=== PATIENT | male | born 1985 | race Caucasian/White ===

== ENCOUNTER 2019-10-19 13:40 | Emergency (ER) | payer OTHER ==
--- NOTE | 2019-10-19 14:16 | RAD ---
RIGHT ANKLE 3 VIEWS: HISTORY: Injury, right ankle pain FINDINGS: Soft tissue swelling is present. The ankle mortise is maintained. No acute fracture or dislocation is identified.
== END 2019-10-19 14:50 | disposition home or self-care (01) ==
LOC: ERS 13:40
DX: S93.401A Sprain of unspecified ligament of right ankle, initial encounter (principal); K58.9 Irritable bowel syndrome, unspecified; Z79.899 Other long term (current) drug therapy; X50.1XXA Overexertion from prolonged static or awkward postures, initial encounter

== ENCOUNTER 2020-12-12 14:02 | Inpatient (IN) | payer OTHER ==
[2020-12-12] MEDS ORDERED: Fentanyl 100 MCG/2 ML VIAL ONE (14:11)
[2020-12-12 14:26] LABS: #Eosinphils 0.4 thou/uL (0.0-0.7); #Lymphocytes 3.2 thou/uL (1.20-3.40); #Monocytes 0.7 thou/uL (0.11-0.59); #Neutrophils 11.6 thou/uL (1.40-6.50); %Basophils 0.2 % (0.0-1.0); %Eosinophils 2.6 % (0.0-10.0); %Lymphocytes 19.8 % (21.0-51.0); %Monocytes 4.6 % (0.0-10.0); %Neutrophils 72.9 % (42.0-75.0); Hemoglobin 15.1 g/dL (14.0-18.0); Mean Corpuscular HGB CONC 32.8 g/dL (32.0-36.0); Mean Corpuscular Volume 82.5 fL (78.0-98.0); Mean Platelet Volume 7.3 fL (7.4-10.4); Platelet Count 370 thou/uL (130-400); RBC Distribution Width 11.2 % (11.5-14.5); White Blood Cell (WBC) Count 15.9 thou/uL (4.8-10.8)
[2020-12-12 14:36] LABS: INR-International Normal Ratio 0.9; PTT 23.1 sec (22.9-36.1); Prothrombin Time 12.7 sec (12.0-14.7)
[2020-12-12 14:52] LABS: ALT (SGPT) 43 U/L (8-55); AST (SGOT) 36 U/L (5-34); Albumin 4.4 g/dL (3.5-5.0); Alkaline Phosphatase 64 U/L (40-110); Anion Gap 14 mmol/L (10-20); BUN (Urea Nitrogen) 15 mg/dL (8.9-20.6); Bilirubin, Total 0.8 mg/dL (0.2-1.2); Calc. Creatinine Clearance 0 mL/min (70-130); Calcium 9.1 mg/dL (7.8-10.44); Carbon Dioxide 24 mmol/L (22-29); Chloride 102 mmol/L (98-107); Globulin 3.2 g/dL (2.4-3.5); Glucose 126 mg/dL (70-105); Lipase 8 U/L (8-78); Potassium 3.4 mmol/L (3.5-5.1); Protein, Total 7.6 g/dL (6.0-8.3); Sodium 137 mmol/L (136-145)
[2020-12-12] MEDS ORDERED: Morphine 4 MG/ML VIAL ONE (14:53)
[2020-12-12] MEDS ORDERED: Ondansetron PF 4 MG/2 ML Vial ONE (14:53)
[2020-12-12] MEDS ORDERED: Iopamidol-370 76% 500 ML 1 ML ONE (14:55)
[2020-12-12] MEDS ORDERED: Boostrix 0.5 ML (Tdap) VIAL ONE (14:59)
[2020-12-12 15:42] LABS: Alcohol Less than 10 mg/dL (Less than 10)
[2020-12-12] MEDS ORDERED: Lidocaine 1% PF 5 ML VIAL ONE (16:34)
[2020-12-12] MEDS ORDERED: Morphine 2 MG/ML VIAL ONE (16:37)
[2020-12-12] MEDS ORDERED: Dextrose 5% in Water 1,000 ML IV PRN (18:27)
[2020-12-12] MEDS ORDERED: Dextrose 50% Abboject 50 ML SYRINGE SLOW IVP PRN (18:27)
[2020-12-12] MEDS ORDERED: Ondansetron ODT 4 MG TAB PO PRN (18:27)
[2020-12-12] MEDS ORDERED: hydrALAZINE 20 MG/ML VIAL SLOW IVP PRN (18:27)
[2020-12-12] MEDS ORDERED: Ibuprofen 200 MG TAB PO PRN (18:27)
[2020-12-12] MEDS ORDERED: Acetaminophen 500 MG TAB PO SCH (18:45)
[2020-12-12 19:27] LABS: Lactic Acid 3.4 mmol/L (0.5-2.2)
[2020-12-12] MEDS: Famotidine 20 MG TAB PO SCH (19:54)
[2020-12-12] MEDS: Morphine 2 MG/ML VIAL SLOW IVP PRN (19:55)
[2020-12-12] MEDS: Sodium Chloride 0.9% 1,000 ML IV SCH (19:55)
[2020-12-12] MEDS: traMADol HCl 50 MG TAB PO PRN (20:20)
[2020-12-12] MEDS: Cyclobenzaprine 10 MG TAB PO PRN (20:21)
[2020-12-12 20:36] VITALS: BMI 38.5
[2020-12-12] MEDS: Senokot S 8.6-50 MG TAB PO SCH (22:02)
[2020-12-12] MEDS: Acetaminophen 500 MG TAB PO SCH (23:11)
[2020-12-12] MEDS: traMADol HCl 50 MG TAB PO SCH (23:12)
[2020-12-13] MEDS: traMADol HCl 50 MG TAB PO PRN (02:14)
[2020-12-13 02:33] LABS: SARS-CoV-2 PCR by NAA Not Detected (NotDetected)
[2020-12-13 05:14] LABS: #Monocytes 1.2 thou/uL (0.11-0.59); %Basophils 0.1 % (0.0-1.0); %Eosinophils 0.4 % (0.0-10.0); %Lymphocytes 19.3 % (21.0-51.0); %Monocytes 11.4 % (0.0-10.0); %Neutrophils 68.8 % (42.0-75.0); Hemoglobin 12.1 g/dL (14.0-18.0); Mean Corpuscular HGB CONC 34.4 g/dL (32.0-36.0); Mean Corpuscular Hemoglobin 28.6 pg (27.0-31.0); Mean Corpuscular Volume 83.1 fL (78.0-98.0); Mean Platelet Volume 7.3 fL (7.4-10.4); Platelet Count 244 thou/uL (130-400); RBC Distribution Width 11.1 % (11.5-14.5); Red Blood Cell (RBC) Count 4.22 mill/uL (4.70-6.10); White Blood Cell (WBC) Count 10.2 thou/uL (4.8-10.8)
[2020-12-13] MEDS: Sodium Chloride 0.9% 1,000 ML IV SCH ×2 (05:21→10:37)
[2020-12-13] MEDS: Acetaminophen 500 MG TAB PO SCH ×3 (05:21→17:29)
[2020-12-13] MEDS: traMADol HCl 50 MG TAB PO SCH (05:22)
[2020-12-13 05:29] LABS: Lactic Acid 1.2 mmol/L (0.5-2.2)
[2020-12-13 05:32] LABS: Phosphorus 4.1 mg/dL (2.3-4.7)
[2020-12-13 05:33] LABS: Anion Gap 11 mmol/L (10-20); BUN (Urea Nitrogen) 16 mg/dL (8.9-20.6); CK (CPK) 581 U/L (30-200); Calc. Creatinine Clearance 216 mL/min (70-130); Carbon Dioxide 22 mmol/L (22-29); Chloride 107 mmol/L (98-107); Glucose 106 mg/dL (70-105); Magnesium 1.9 mg/dL (1.6-2.6); Potassium 3.8 mmol/L (3.5-5.1); Sodium 136 mmol/L (136-145)
[2020-12-13] MEDS ORDERED: CEFAZOLIN 2 GM in Premix Bag 1 BAG IVPB SCH (07:15)
[2020-12-13] MEDS ORDERED: Promethazine HCl 25 MG/ML VIAL IM PRN ×2 (10:04→21:01)
[2020-12-13] MEDS ORDERED: diphenhydrAMINE 25 MG CAP PO PRN (10:04)
[2020-12-13] MEDS ORDERED: diphenhydrAMINE 50 MG/ML VIAL IM PRN (10:04)
[2020-12-13] MEDS ORDERED: diphenhydrAMINE 50 MG/ML VIAL IVP PRN (10:04)
[2020-12-13] MEDS ORDERED: Zolpidem Tartrate 5 MG TAB PO PRN (10:04)
[2020-12-13] MEDS ORDERED: Naloxone HCl 0.4 mg/ml Vial IV PRN (10:04)
[2020-12-13] MEDS ORDERED: Communication Order-Pharmacy FS PRN (10:15)
[2020-12-13] MEDS: Morphine 2 MG/ML VIAL SLOW IVP PRN (10:31)
[2020-12-13] MEDS: Cyclobenzaprine 10 MG TAB PO PRN (10:33)
[2020-12-13] MEDS: Polyethylene Glycol 3350 17 GM Packet PO SCH (10:37)
[2020-12-13] MEDS: Famotidine 20 MG TAB PO SCH ×2 (10:38→22:36)
[2020-12-13] MEDS: Senokot S 8.6-50 MG TAB PO SCH ×2 (10:41→22:36)
[2020-12-13] MEDS ORDERED: Morphine 4 MG/ML VIAL SLOW IVP SCH (12:45)
[2020-12-13] MEDS ORDERED: Fentanyl 100 MCG/2 ML VIAL ONE ×2 (13:51→16:26)
[2020-12-13] MEDS ORDERED: Midazolam HCl 2 mg/2 ml Vial ONE ×2 (13:51→15:43)
[2020-12-13] MEDS ORDERED: AFRIN NASAL MIST 15 ML BOT ONE (14:58)
[2020-12-13] MEDS ORDERED: Lidocaine 1% w/Epinephrine 1:100K 20 ML VIAL ONE (15:03)
[2020-12-13] MEDS ORDERED: Bacitracin Zinc Ointment 30 gm TUBE ONE (15:03)
[2020-12-13] MEDS ORDERED: Chlorhexidine Gluconate 15 ML UDCUP SSP ONE (15:03)
[2020-12-13] MEDS ORDERED: Glycopyrrolate 0.2 MG/ML 5 ML SYRINGE ONE (15:53)
[2020-12-13] MEDS ORDERED: Lidocaine 1% PF 5 ML VIAL ONE (15:53)
[2020-12-13] MEDS ORDERED: Vecuronium 10 MG VIAL ONE (15:53)
[2020-12-13] MEDS ORDERED: Dexamethasone 20 MG/5 ML VIAL ONE (15:53)
[2020-12-13] MEDS ORDERED: Rocuronium Bromide 10 MG/ML (10ML VIAL) ONE (15:53)
[2020-12-13] MEDS ORDERED: Ondansetron PF 4 MG/2 ML Vial ONE (15:53)
[2020-12-13] MEDS ORDERED: Esmolol 100 MG/10 ML VIAL ONE (15:53)
[2020-12-13] MEDS ORDERED: Bupivacaine PF 0.5% 30 ML VIAL ONE (15:53)
[2020-12-13] MEDS ORDERED: PROPOFOL 200 MG/20 ML VIAL ONE (15:53)
[2020-12-13] MEDS ORDERED: HYDROmorphone 2 MG/ML VIAL ONE ×2 (16:30→18:12)
[2020-12-13] MEDS ORDERED: SUGAMMADEX SODIUM 200 MG/2 ML VIAL ONE (18:21)
[2020-12-13] MEDS ORDERED: HYDROmorphone 2 MG/ML VIAL SLOW IVP PRN (21:01)
[2020-12-13] MEDS ORDERED: Meperidine HCl/PF 25 MG/ML VIAL SLOW IVP PRN (21:01)
[2020-12-13] MEDS ORDERED: Ondansetron HCl/PF 4 MG/2 ML Vial IVP PRN (21:01)
[2020-12-13] MEDS ORDERED: Promethazine HCl 25 MG/ML VIAL SLOW IVP PRN (21:01)
[2020-12-13] MEDS ORDERED: Labetalol HCl 100 MG/20 ML VIAL ONE (21:13)
[2020-12-13] MEDS: HYDROmorphone 10 mg/100 ml CADD IVPB PRN (22:48)
[2020-12-13] MEDS: CEFAZOLIN 2 GM in Premix Bag 1 BAG IVPB SCH (23:11)
[2020-12-14] MEDS: Acetaminophen 500 MG TAB PO SCH ×3 (01:55→06:43)
[2020-12-14 05:22] LABS: #Lymphocytes 1.5 thou/uL (1.20-3.40); #Monocytes 1.5 thou/uL (0.11-0.59); #Neutrophils 11.1 thou/uL (1.40-6.50); %Basophils 0.1 % (0.0-1.0); %Eosinophils 0.1 % (0.0-10.0); %Lymphocytes 10.5 % (21.0-51.0); %Monocytes 10.6 % (0.0-10.0); %Neutrophils 78.7 % (42.0-75.0); Hemoglobin 10.4 g/dL (14.0-18.0); Mean Corpuscular HGB CONC 33.3 g/dL (32.0-36.0); Mean Corpuscular Hemoglobin 27.8 pg (27.0-31.0); Mean Corpuscular Volume 83.7 fL (78.0-98.0); Mean Platelet Volume 7.4 fL (7.4-10.4); Platelet Count 226 thou/uL (130-400); Red Blood Cell (RBC) Count 3.75 mill/uL (4.70-6.10); White Blood Cell (WBC) Count 14.1 thou/uL (4.8-10.8)
[2020-12-14 05:39] LABS: Anion Gap 14 mmol/L (10-20); BUN (Urea Nitrogen) 12 mg/dL (8.9-20.6); Calc. Creatinine Clearance 213 mL/min (70-130); Calcium 7.8 mg/dL (7.8-10.44); Carbon Dioxide 21 mmol/L (22-29); Chloride 104 mmol/L (98-107); Glucose 127 mg/dL (70-105); Magnesium 1.8 mg/dL (1.6-2.6); Phosphorus 3.9 mg/dL (2.3-4.7); Potassium 4.1 mmol/L (3.5-5.1); Sodium 135 mmol/L (136-145)
[2020-12-14] MEDS: CEFAZOLIN 2 GM in Premix Bag 1 BAG IVPB SCH ×2 (06:39→14:56)
[2020-12-14] MEDS: Polyethylene Glycol 3350 17 GM Packet PO SCH (08:29)
[2020-12-14] MEDS: Senokot S 8.6-50 MG TAB PO SCH ×2 (08:29→20:28)
[2020-12-14] MEDS: Famotidine 20 MG TAB PO SCH ×2 (08:29→20:28)
[2020-12-14] MEDS: Enoxaparin Sodium 40 MG/0.4 ML SYRINGE SC SCH ×2 (10:29→20:24)
[2020-12-14] MEDS: Sodium Chloride 0.9% 1,000 ML IV SCH ×3 (10:29→20:25)
[2020-12-14] MEDS: Ketorolac Tromethamine 30 MG/ML VIAL IVP SCH ×3 (11:50→23:31)
[2020-12-14] MEDS: Gabapentin 300 MG CAP PO SCH ×2 (14:57→20:28)
[2020-12-14] MEDS: Ondansetron PF 4 MG/2 ML Vial IVP PRN ×2 (15:13→23:33)
[2020-12-14] MEDS: Lactase 9,000 UNIT CHEWABLE TAB PO SCH (17:56)
[2020-12-14] MEDS: Scopolamine 1.5 mg/72 hour Patch TD SCH (17:57)
[2020-12-14] MEDS: HYDROmorphone 10 mg/100 ml CADD IVPB PRN (17:58)
[2020-12-15 05:40] LABS: #Lymphocytes 1.2 thou/uL (1.20-3.40); #Monocytes 1.2 thou/uL (0.11-0.59); #Neutrophils 7.9 thou/uL (1.40-6.50); %Basophils 0.3 % (0.0-1.0); %Eosinophils 0.4 % (0.0-10.0); %Lymphocytes 11.6 % (21.0-51.0); %Monocytes 11.7 % (0.0-10.0); Hemoglobin 9.7 g/dL (14.0-18.0); Mean Corpuscular HGB CONC 34.4 g/dL (32.0-36.0); Mean Corpuscular Hemoglobin 28.7 pg (27.0-31.0); Mean Corpuscular Volume 83.6 fL (78.0-98.0); Mean Platelet Volume 7.6 fL (7.4-10.4); Platelet Count 182 thou/uL (130-400); RBC Distribution Width 10.9 % (11.5-14.5); Red Blood Cell (RBC) Count 3.39 mill/uL (4.70-6.10); White Blood Cell (WBC) Count 10.3 thou/uL (4.8-10.8)
[2020-12-15] MEDS: Ketorolac Tromethamine 30 MG/ML VIAL IVP SCH ×4 (05:59→23:04)
[2020-12-15 06:03] LABS: Anion Gap 15 mmol/L (10-20); BUN (Urea Nitrogen) 13 mg/dL (8.9-20.6); Calc. Creatinine Clearance 235 mL/min (70-130); Calcium 7.8 mg/dL (7.8-10.44); Carbon Dioxide 22 mmol/L (22-29); Chloride 103 mmol/L (98-107); Glucose 103 mg/dL (70-105); Magnesium 2.1 mg/dL (1.6-2.6); Phosphorus 2.6 mg/dL (2.3-4.7); Potassium 3.8 mmol/L (3.5-5.1); Sodium 136 mmol/L (136-145)
[2020-12-15] MEDS: Ondansetron PF 4 MG/2 ML Vial IVP PRN ×2 (09:00→17:53)
[2020-12-15] MEDS: Enoxaparin Sodium 40 MG/0.4 ML SYRINGE SC SCH ×2 (09:02→22:28)
[2020-12-15] MEDS: Lactase 9,000 UNIT CHEWABLE TAB PO SCH ×2 (09:03→17:25)
[2020-12-15] MEDS: Polyethylene Glycol 3350 17 GM Packet PO SCH (09:03)
[2020-12-15] MEDS: Famotidine 20 MG TAB PO SCH ×2 (09:03→22:28)
[2020-12-15] MEDS: Senokot S 8.6-50 MG TAB PO SCH ×2 (09:03→22:25)
[2020-12-15] MEDS: Gabapentin 300 MG CAP PO SCH ×3 (09:04→22:26)
[2020-12-15] MEDS: Ascorbic Acid 500 mg Chewable Tablet PO SCH ×2 (09:04→22:27)
[2020-12-15] MEDS: Acetaminophen W/ Codeine 5 ML UDCUP PO SCH ×4 (09:05→18:23)
[2020-12-15] MEDS: Sodium Chloride 0.9% 1,000 ML IV SCH (09:08)
[2020-12-15 10:34] LABS: Bacteria/HPF None Seen HPF (None Seen); Bilirubin Negative (Negative); Blood, Urine 1+ (Negative); Clarity Clear (Clear); Glucose, Urine (Dipstick) Normal (Negative); Ketone, Urine 20 mg/dL (Negative); Leukocyte Negative Leu/uL (Negative); Nitrite Negative (Negative); Protein, Urine (Dipstick) 20 mg/dL (Neg-Trace); Specific Gravity, Urine 1.023 (1.002-1.036); Squamous Epithelial 0-3 HPF (0-3); Urobilinogen Normal mg/dL (Less than 2); WBC/HPF 0-3 HPF (0-3)
[2020-12-15 10:36] LABS: Urine Culture Reflex No No
[2020-12-15] MEDS ORDERED: Furosemide 20 MG/2 ML VIAL SLOW IVP SCH (10:45)
[2020-12-15 10:54] LABS: CKMB 6.3 ng/mL (0-6.6)
[2020-12-15 12:04] LABS: CK (CPK) 4769 U/L (30-200)
[2020-12-15 14:06] LABS: CKMB 5.2 ng/mL (0-6.6)
[2020-12-15] MEDS ORDERED: Senokot 8.6 MG TAB PO SCH (17:00)
[2020-12-15] MEDS ORDERED: traMADol HCl 50 MG TAB PO PRN (18:52)
[2020-12-15] MEDS: Promethazine HCl 12.5 MG in Sodium Chloride 0.9% 50 ML IVPB PRN (19:50)
[2020-12-15] MEDS: traMADol HCl 50 MG TAB PO SCH (23:06)
[2020-12-16] MEDS: Sodium Chloride 0.9% 1,000 ML IV SCH ×4 (00:14→21:15)
[2020-12-16 05:04] LABS: Hemoglobin 8.8 g/dL (14.0-18.0); Mean Corpuscular HGB CONC 34.6 g/dL (32.0-36.0); Mean Corpuscular Hemoglobin 28.9 pg (27.0-31.0); Mean Corpuscular Volume 83.5 fL (78.0-98.0); Mean Platelet Volume 7.6 fL (7.4-10.4); Platelet Count 239 thou/uL (130-400); RBC Distribution Width 10.9 % (11.5-14.5); Red Blood Cell (RBC) Count 3.05 mill/uL (4.70-6.10); White Blood Cell (WBC) Count 12.1 thou/uL (4.8-10.8)
[2020-12-16] MEDS: traMADol HCl 50 MG TAB PO SCH ×3 (05:18→18:09)
[2020-12-16] MEDS: Ketorolac Tromethamine 30 MG/ML VIAL IVP SCH ×3 (05:20→17:52)
[2020-12-16 05:27] LABS: Anion Gap 14 mmol/L (10-20); BUN (Urea Nitrogen) 14 mg/dL (8.9-20.6); CK (CPK) 3859 U/L (30-200); Calc. Creatinine Clearance 261 mL/min (70-130); Calcium 7.6 mg/dL (7.8-10.44); Carbon Dioxide 21 mmol/L (22-29); Chloride 104 mmol/L (98-107); Glucose 107 mg/dL (70-105); Magnesium 2.2 mg/dL (1.6-2.6); Phosphorus 2.7 mg/dL (2.3-4.7); Potassium 3.5 mmol/L (3.5-5.1); Sodium 135 mmol/L (136-145)
[2020-12-16] MEDS: Promethazine HCl 12.5 MG in Sodium Chloride 0.9% 50 ML IVPB PRN (06:30)
[2020-12-16] MEDS: Famotidine 20 MG TAB PO SCH ×2 (09:46→21:17)
[2020-12-16] MEDS: Lactase 9,000 UNIT CHEWABLE TAB PO SCH (09:46)
[2020-12-16] MEDS: Ascorbic Acid 500 mg Chewable Tablet PO SCH ×2 (09:49→21:18)
[2020-12-16] MEDS: Gabapentin 300 MG CAP PO SCH (09:49)
[2020-12-16] MEDS: Senokot S 8.6-50 MG TAB PO SCH ×2 (09:49→21:16)
[2020-12-16] MEDS: Enoxaparin Sodium 40 MG/0.4 ML SYRINGE SC SCH ×2 (09:50→21:18)
[2020-12-16] MEDS: Ondansetron PF 4 MG/2 ML Vial IVP PRN (10:06)
[2020-12-16] MEDS ORDERED: Bisacodyl 10 MG SUPP PR PRN (10:44)
[2020-12-16] MEDS: Acetaminophen 650 MG/20.3 ML UDCUP PO SCH ×2 (12:26→17:51)
[2020-12-16] MEDS: Bisacodyl 10 MG SUPP PR SCH (12:30)
[2020-12-17] MEDS: traMADol HCl 50 MG TAB PO SCH ×4 (00:24→18:15)
[2020-12-17] MEDS: Acetaminophen 650 MG/20.3 ML UDCUP PO SCH ×4 (00:34→17:43)
[2020-12-17] MEDS: Ketorolac Tromethamine 30 MG/ML VIAL IVP SCH ×2 (00:35→06:21)
[2020-12-17 04:58] LABS: #Eosinphils 0.4 thou/uL (0.0-0.7); #Lymphocytes 1.8 thou/uL (1.20-3.40); #Monocytes 1.3 thou/uL (0.11-0.59); #Neutrophils 8.9 thou/uL (1.40-6.50); %Basophils 0.3 % (0.0-1.0); %Eosinophils 3.5 % (0.0-10.0); %Lymphocytes 14.6 % (21.0-51.0); %Monocytes 10.4 % (0.0-10.0); %Neutrophils 71.3 % (42.0-75.0); Hemoglobin 8.3 g/dL (14.0-18.0); Mean Corpuscular HGB CONC 33.4 g/dL (32.0-36.0); Mean Corpuscular Hemoglobin 28.2 pg (27.0-31.0); Mean Corpuscular Volume 84.2 fL (78.0-98.0); Mean Platelet Volume 7.7 fL (7.4-10.4); Platelet Count 262 thou/uL (130-400); RBC Distribution Width 11.1 % (11.5-14.5); Red Blood Cell (RBC) Count 2.94 mill/uL (4.70-6.10); White Blood Cell (WBC) Count 12.5 thou/uL (4.8-10.8)
[2020-12-17 05:23] LABS: Anion Gap 13 mmol/L (10-20); BUN (Urea Nitrogen) 12 mg/dL (8.9-20.6); CK (CPK) 2407 U/L (30-200); Calc. Creatinine Clearance 268 mL/min (70-130); Calcium 7.6 mg/dL (7.8-10.44); Carbon Dioxide 20 mmol/L (22-29); Chloride 107 mmol/L (98-107); Glucose 96 mg/dL (70-105); Magnesium 2.2 mg/dL (1.6-2.6); Phosphorus 3.2 mg/dL (2.3-4.7); Potassium 3.7 mmol/L (3.5-5.1); Sodium 136 mmol/L (136-145)
[2020-12-17] MEDS: Sodium Chloride 0.9% 1,000 ML IV SCH ×2 (06:19→06:29)
[2020-12-17] MEDS: Ascorbic Acid 500 mg Chewable Tablet PO SCH ×2 (07:50→20:26)
[2020-12-17] MEDS: Famotidine 20 MG TAB PO SCH ×2 (07:50→20:26)
[2020-12-17] MEDS: Senokot S 8.6-50 MG TAB PO SCH ×2 (07:50→20:27)
[2020-12-17] MEDS: Bisacodyl 10 MG SUPP PR SCH (07:51)
[2020-12-17] MEDS: Enoxaparin Sodium 40 MG/0.4 ML SYRINGE SC SCH ×2 (07:52→20:26)
[2020-12-17] MEDS: Scopolamine 1.5 mg/72 hour Patch TD SCH (17:44)
[2020-12-18] MEDS: Acetaminophen 650 MG/20.3 ML UDCUP PO SCH ×5 (00:04→23:46)
[2020-12-18] MEDS: traMADol HCl 50 MG TAB PO SCH ×5 (00:05→23:49)
[2020-12-18] MEDS: Senokot S 8.6-50 MG TAB PO SCH ×2 (08:25→20:17)
[2020-12-18] MEDS: Bisacodyl 10 MG SUPP PR SCH (08:25)
[2020-12-18] MEDS: Famotidine 20 MG TAB PO SCH (08:26)
[2020-12-18] MEDS: Enoxaparin Sodium 40 MG/0.4 ML SYRINGE SC SCH ×2 (08:26→20:16)
[2020-12-18] MEDS: Ascorbic Acid 500 mg Chewable Tablet PO SCH ×2 (08:27→20:16)
[2020-12-18] MEDS: Chlorhexidine Gluconate 15 ML UDCUP SSP SCH (20:17)
[2020-12-19] MEDS: Acetaminophen 650 MG/20.3 ML UDCUP PO SCH ×3 (06:05→18:12)
[2020-12-19] MEDS: traMADol HCl 50 MG TAB PO SCH ×3 (06:07→18:13)
[2020-12-19] MEDS: Bisacodyl 10 MG SUPP PR SCH (07:56)
[2020-12-19] MEDS: Ascorbic Acid 500 mg Chewable Tablet PO SCH ×2 (09:45→20:29)
[2020-12-19] MEDS: Chlorhexidine Gluconate 15 ML UDCUP SSP SCH ×2 (09:45→20:29)
[2020-12-19] MEDS: Senokot S 8.6-50 MG TAB PO SCH ×2 (09:46→20:30)
[2020-12-19] MEDS: Enoxaparin Sodium 40 MG/0.4 ML SYRINGE SC SCH ×2 (09:46→20:29)
[2020-12-20] MEDS: Acetaminophen 650 MG/20.3 ML UDCUP PO SCH ×4 (00:07→17:59)
[2020-12-20] MEDS: traMADol HCl 50 MG TAB PO SCH ×5 (00:17→23:33)
[2020-12-20] MEDS: Cyclobenzaprine 10 MG TAB PO PRN ×2 (05:23→20:08)
[2020-12-20] MEDS: Enoxaparin Sodium 40 MG/0.4 ML SYRINGE SC SCH ×2 (09:13→20:08)
[2020-12-20] MEDS: Chlorhexidine Gluconate 15 ML UDCUP SSP SCH ×2 (09:14→20:08)
[2020-12-20] MEDS: Ascorbic Acid 500 mg Chewable Tablet PO SCH ×2 (09:14→20:08)
[2020-12-20] MEDS: Bisacodyl 10 MG SUPP PR SCH (09:29)
[2020-12-20] MEDS: Senokot S 8.6-50 MG TAB PO SCH ×2 (09:29→20:19)
[2020-12-20] MEDS: Scopolamine 1.5 mg/72 hour Patch TD SCH (18:00)
[2020-12-21] MEDS: Acetaminophen 650 MG/20.3 ML UDCUP PO SCH ×3 (00:31→13:13)
[2020-12-21] MEDS: traMADol HCl 50 MG TAB PO SCH ×2 (05:37→13:14)
[2020-12-21 08:01] VITALS: BP 148/94; TEMP 97.7
[2020-12-21] MEDS: Chlorhexidine Gluconate 15 ML UDCUP SSP SCH (10:09)
[2020-12-21] MEDS: Ascorbic Acid 500 mg Chewable Tablet PO SCH (10:09)
[2020-12-21] MEDS: Enoxaparin Sodium 40 MG/0.4 ML SYRINGE SC SCH (10:09)
[2020-12-21] MEDS: Bisacodyl 10 MG SUPP PR SCH (13:13)
[2020-12-21] MEDS: Senokot S 8.6-50 MG TAB PO SCH (13:13)
== END 2020-12-21 13:05 | disposition home health service (06) | DRG 956 ==
LOC: ERS 14:02 → SURG B 15:41
PROVIDERS: ADMIT Surgery; ATTEND Surgery
PROC: 0QS904Z Reposition Left Femoral Shaft with Internal Fixation Device, Open Approach (ICD-10-PCS; principal; 2020-12-13)
PROC: 0QSC04Z Reposition Left Lower Femur with Internal Fixation Device, Open Approach (ICD-10-PCS; 2020-12-13)
PROC: 0NSR04Z Reposition Maxilla with Internal Fixation Device, Open Approach (ICD-10-PCS; 2020-12-13)
DX: S72.422A Displaced fracture of lateral condyle of left femur, initial encounter for closed fracture (principal); T79.6XXA Traumatic ischemia of muscle, initial encounter; S02.411A LeFort I fracture, initial encounter for closed fracture; S02.32XA Fracture of orbital floor, left side, initial encounter for closed fracture; S02.19XA Other fracture of base of skull, initial encounter for closed fracture; S06.0X9A Concussion with loss of consciousness of unspecified duration, initial encounter; J98.11 Atelectasis; S72.492A Other fracture of lower end of left femur, initial encounter for closed fracture; S51.011A Laceration without foreign body of right elbow, initial encounter; S02.2XXA Fracture of nasal bones, initial encounter for closed fracture; R40.2412 Glasgow coma scale score 13-15, at arrival to emergency department; D64.9 Anemia, unspecified; D72.829 Elevated white blood cell count, unspecified; V43.52XA Car driver injured in collision with other type car in traffic accident, initial encounter; Z87.19 Personal history of other diseases of the digestive system; Z90.89 Acquired absence of other organs
CPT/HCPCS: 36415; 70450; 70486; 71045; 71260; 72125; 74018; 74177; 76000; 80048; 80053; 80307; 81001; 82550; 82553; 83605; 83690; 83735; 83880; 84100; 84484; 85025; 85027; 85610; 85730; 86850; 86900; 86901; 87635; 90715; 93005; 93010; 96365; 96375; 96376; C1713; G0390; J0690; J1100; J1170; J1650; J1885; J1940; J2250; J2270; J2405; J2550; J2704; J3010; J7030; Q9967; S0020; U0003; U0005